=== PATIENT | female | born 1930 | race Caucasian/White ===

== ENCOUNTER 2020-06-05 14:41 | Emergency (ER) | payer MEDICARE, BC ==
--- NOTE | 2020-06-05 14:49 | EDM.PDOC ---
ED HPI GENERAL MEDICAL PROBLEM - General Chief Complaint: Lower Extremity Injury/Pain Stated Complaint: AMBULANCE Time Seen by Provider: 06/05/20 14:45 Source of Information: Reports: Patient, EMS, Old Records, RN, RN Notes Reviewed History Limitations: Reports: No Limitations - History of Present Illness INITIAL COMMENTS - FREE TEXT/NARRATIVE: Pt arrives to ER by ambulance with c/o pain in the right buttock/hip area sustained early this morning when she slipped from a seat and fell to the floor. She denies any other area of pain. Pt has been able to walk, but with pain which she rates at a 4/10 currently. Onset: Today Duration: Constant Location: Reports: Lower Extremity, Right Quality: Reports: Ache Severity: Moderate Improves with: Reports: Immobilization, Rest Worsens with: Reports: Movement (Wt bearing/walking) Associated Symptoms: Reports: No Other Symptoms Right Hip Pain Score (Numeric/FACES): 6 - Related Data Allergies Allergy/AdvReac Type Severity Reaction Status Date / Time No Known Allergies Allergy Verified 06/05/20 15:33 Home Meds: Home Meds Aspirin [Adult Low Dose Aspirin EC] 81 mg PO DAILY 03/30/14 [History] Nateglinide 120 mg PO DAILY 03/30/14 [History] amLODIPine/Benazepril [Lotrel 10-20 MG] 1 cap PO DAILY 03/30/14 [History] atorvaSTATin [Lipitor] 80 mg PO BEDTIME 03/30/14 [History] clonazePAM [Clonazepam] 0.5 mg PO DAILY 03/30/14 [History] hydroCHLOROthiazide [Hydrochlorothiazide] 25 mg PO DAILY 03/30/14 [History] Past Medical History HEENT History: Reports: Hard of Hearing, Impaired Vision Musculoskeletal History: Reports: Back Pain, Chronic Endocrine/Metabolic History: Reports: Diabetes, Type II - Past Surgical History HEENT Surgical History: Reports: Cataract Surgery Social & Family History - Family History Family Medical History: No Pertinent Family History - Living Situation & Occupation Living situation: Reports: Assisted Living Occupation: Retired Review of Systems - Review of Systems Review Of Systems: Comprehensive ROS is negative, except as noted in HPI. ED EXAM, GENERAL - Physical Exam Exam: See Below Exam Limited By: No Limitations General Appearance: Alert, WD/WN, No Apparent Distress Eye Exam: Bilateral Eye: Normal Inspection Throat/Mouth: Normal Lips, Normal Voice, No Airway Compromise Neck: Normal Inspection, Supple, Non-Tender, Full Range of Motion Respiratory/Chest: No Respiratory Distress, Lungs Clear, No Accessory Muscle Use, Chest Non-Tender, Decreased Breath Sounds Cardiovascular: Normal Peripheral Pulses, Regular Rate, Rhythm, No Edema GI/Abdominal: Normal Bowel Sounds, Soft, Non-Tender Back Exam: Normal Inspection. No: CVA Tenderness (L), CVA Tenderness (R), Verte bral Tenderness Extremities: Normal Range of Motion (with mild pain reported at the right buttock and posterior hip), Other (No visible bruising). No: Joint Swelling, Increased Warmth, Mottled, Pallor, Redness Neurological: Alert, Oriented (to person and place), No Motor/Sensory Deficits Psychiatric: Normal Mood Skin Exam: Warm, Dry, Intact, Normal Color, No Rash Course - Radiology Interpretation Free Text/Narrative:: CT Pelvis: Acute nondisplaced lateral acetabular corner fracture pelvis, on the right. 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 Osteopenia. No sign of other pelvic of either hip fracture/ dislocation. No sign of pathologic skeletal lesion. No pelvic hematomas. See rad report. - Re-Assessments/Exams Free Text/Narrative Re-Assessment/Exam: 06/05/20 15:49 I consulted orthopedic surgeon, Dr. Ramirez via [facility] to review the pt's case and CT findings. He advises that no orthopedic intervention or surgery is needed, and the pt may wt. bear as tolerated. Free Text/Narrative Re-Assessment/Exam: 06/05/20 15:50 I called the pt's medical DPA, daughter Shana Valladares to inform her of the pt's ER visit, findings, orthopedic consult, and discharge plan. Departure - Departure Time of Disposition: 15:51 Disposition: Home, Self-Care 01 Condition: Good Clinical Impression: Closed nondisplaced fracture of right acetabulum Qualifiers: Encounter type: initial encounter Sublocation of acetabulum: posterior column Qualified Code(s): S32.444A - Nondisplaced fracture of posterior column [ilioischial] of right acetabulum, initial encounter for closed fracture - Discharge Information *PRESCRIPTION DRUG MONITORING PROGRAM REVIEWED*: Not Applicable *COPY OF PRESCRIPTION DRUG MONITORING REPORT IN PATIENT NISH: Not Applicable Instructions: Simple Pelvic Fracture, Adult, How To Use a Four-Wheeled Walker Forms: ED Department Discharge Additional Instructions: You have a small nondisplaced fracture of the right hip/pelvis. No surgery or treatment is needed. Use a walker until the pain resolves in 2 to 3 weeks. Apply an ice pack to the area of pain as needed. Use Tylenol as needed. Follow directions on label for dosing and precautions. Follow up in clinic with your primary doctor if not improving as expected over the next 3 weeks.
--- NOTE | 2020-06-05 15:19 | CT ---
EXAMINATION: Pelvis wo Cont SEX: Female AGE: 89 years CLINICAL HISTORY: 89-year-old female right hip PAIN associated with recent fall. Incidental history "breast cancer". Scan technique: Volume acquisition of data emergency unenhanced CT scan of the bony pelvis and both hips obtained with the patient lying supine on the Siemens multislice scanner [place], [place]. All data archived in the PACS system for storage, reformatting axial/sagittal/coronal planes and study. Interpretation: Abnormal. 1. *Acute, nondisplaced lateral acetabular corner fracture pelvis, on the right. 2. 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 3. Osteopenia. No sign of other pelvic or either hip fracture/dislocation. 4. No sign of pathologic skeletal lesion. No pelvic hematomas. 5. Symmetric spacing normal-appearing SI and hip joints without appreciable arthritic degenerative change. 6. Atheromatous "cast" normal caliber distal abdominal aorta and common iliac arteries.
== END 2020-06-05 16:29 | disposition home or self-care (01) ==
LOC: DL.ED 14:41
DX: S32.444A Nondisplaced fracture of posterior column [ilioischial] of right acetabulum, initial encounter for closed fracture (principal); E11.9 Type 2 diabetes mellitus without complications; Z79.82 Long term (current) use of aspirin; Z79.84 Long term (current) use of oral hypoglycemic drugs; Z79.899 Other long term (current) drug therapy; W01.0XXA Fall on same level from slipping, tripping and stumbling without subsequent striking against object, initial encounter
CPT/HCPCS: 72192; 99282; 99284-25